=== PATIENT | male | born 1955 | race Caucasian/White ===

== ENCOUNTER 2021-03-24 02:59 | Inpatient (IN) | payer MEDICARE ==
[~2021-03-24] VITALS: Ht 177.8 cm; Wt 65.2 kg
[2021-03-24 03:39] LABS: Hematocrit 34.9 % (37.0-53.0); Hemoglobin 11.3 g/dL (13.5-17.5); Mean Corpuscular HGB 32.4 pg (26.0-34.0); Mean Corpuscular HGB Conc 32.4 g/dL (31.5-36.5); Mean Corpuscular Volume 100 fL (80-100); Mean Platelet Volume 9.4 fL (9.1-12.4); Platelet Count 300 K/mm3 (150-400); RDW Coefficient Variation 13.3 % (11.7-14.2); Red Blood Cell Count 3.49 M/mm3 (4.30-5.90); White Blood Cell Count 17.89 K/mm3 (4.00-11.30)
[2021-03-24 04:01] LABS: Alanine Aminotransfer (ALT/SGP 31 U/L (12-78); Albumin, Blood 3.1 g/dL (3.4-5.0); Albumin/Globulin Ratio 0.9 (0.8-1.8); Alk Phos 109 U/L (50-136); Anion Gap 4 mmol/L (6-16); Aspartate Aminotrans (AST/SGOT 29 U/L (12-37); Bilirubin, Total 0.4 mg/dL (0.1-1.0); Blood Urea Nitrogen 14 mg/dL (8-24); CO2, Blood 25 mmol/L (21-32); Calcium, Blood 8.4 mg/dL (8.5-10.1); Chloride, Blood 108 mmol/L (98-108); Creatinine, Blood 1.17 mg/dL (0.60-1.20); Globulin, Blood 3.6 g/dL (2.2-4.0); Glomerular Filtration Rate >60 (60-); Glucose, Blood 103 mg/dL (70-99); Potassium, Blood 4.1 mmol/L (3.5-5.5); Sodium, Blood 137 mmol/L (136-145); Total Protein, Blood 6.7 g/dL (6.4-8.2)
[2021-03-24 04:04] LABS: Influenza A, PCR NEGATIVE (NEGATIVE); Influenza B, PCR NEGATIVE (NEGATIVE); Resp Syncytial Virus, PCR NEGATIVE (NEGATIVE)
[2021-03-24 04:21] LABS: SARS-Cov-2 (COVID-19) PCR, MMC POSITIVE (NEGATIVE)
[2021-03-24 04:35] LABS: Source, Urine Clean Catch
[2021-03-24 04:40] LABS: Bilirubin, Urine Neg (Neg); Blood, Urine 4+ (Neg); Glucose Qualitative, Urine Neg (Neg); Ketones, Urine Neg (Neg); Leukocyte Esterase, Urine Neg (Neg); Nitrite, Urine Neg (Neg); Protein, Urine 2+ (Neg); Urobilinogen, Urine NORM (Normal)
[2021-03-24 04:48] LABS: BAND PERCENT MAN 23 % (0-8); BASOPHILS PERCENT MAN 0 % (0-2); EOSINOPHILS ABSOLUTE MAN 0.17 K/mm3 (0.00-0.68); EOSINOPHILS PERCENT MAN 1 % (0-6); LYMPHOCYTES ABSOLUTE MAN 0.35 K/mm3 (0.84-5.20); LYMPHOCYTES PERCENT MAN 2 % (21-46); MONOCYTES ABSOLUTE MAN 0.71 K/mm3 (0.16-1.47); MONOCYTES PERCENT MAN 4 % (4-13); NEUTROPHILS ABSOLUTE MAN 16.63 K/mm3 (1.96-9.15); SEG NEUTROPHILS PERCENT MAN 70 % (41-73); TOTAL CELLS COUNTED 100
[2021-03-24 04:51] LABS: Appearance, Urine Clear (Clear); Color, Urine Yellow (P-Yellow)
[2021-03-24 05:22] LABS: Amorphous Light (0-Heavy); Bacteria Not Seen /hpf; Mucus Light (0-Heavy); Squamous Epithelial Cells Rare /hpf (Few); White Blood Cells, Urine Not Seen /hpf (0-5)
--- NOTE | 2021-03-24 05:52 | NUR ---
REPORT RECEIVED FROM ANGELLA VASQUEZ FROM ER PRIOR TO TRANSPORT. AWAITING PATIENT ARRIVAL NOW.
--- NOTE | 2021-03-24 08:46 | NUR ---
TELEMETRY APPLIED. VERIFIED NSR 92 WITH HONEY GRADER AND BLENDER.
--- NOTE | 2021-03-24 10:15 | NUR ---
@ 0854, PORT A CATH INTACT WITH IVF INFUSING TO R CHEST.
--- NOTE | 2021-03-24 13:02 | NUR ---
WITH PATIENT'S PERMISSION, UPDATED HIS SISTER, FEROZ COHEN [phone] ON HIS STATUS VIA PHONE.
--- NOTE | 2021-03-24 14:20 | NUR ---
PATIENT INCONTINENT OF STOOL ON THE WAY TO THE BATHROOM. GOWN CHANGED. ATTENDS APPLIED. HOUSEKEEPING CALLED TO MOP THE FLOOR ALTHOUGH PATIENT CLEANED UP THE IMMEDIATE STOOL ON THE FLOOR HIMSELF. PATIENT POSITIONED SELF TO PRONE. EXPLAINED RATIONALE FOR IT. PO FLUIDS PROVIDED. WILL MONITOR.
--- NOTE | 2021-03-24 17:25 | NUR ---
@ 1545, PATIENT TOLERATING PRONING FOR ALMOST 1.5 HOURS. PO FLUIDS PROVIDED. RESPIRATIONS EVEN AND UNLABORED. PATIENT SMILING AND MORE PLEASANT THIS AFTERNOON COMPARED TO EARLIER THIS MORNING. WILL MONITOR.
--- NOTE | 2021-03-24 18:29 | NUR ---
@ 1730, PATIENT IS SLEEPING WHEN ROUNDING TO GET HIM TO PRONE AGAIN. WILL MONITOR.
--- NOTE | 2021-03-24 18:31 | NUR ---
TOLERATED ONE SESSION PRONING. NO O2 IN USE. RESPIRATIONS EVEN AND UNLABORED. TELE INTACT SR EXCEPT FOR A LESS THAN 15 SECOND RUN OF SVT PER MANUAL TRAINING TEACHER. APPETITE GOOD. TOLERATED PO FLUIDS. ATTENDS IN USE DUE TO ONE INCONTINENT EPISODE ON ROUTE TO THE BATHROOM. AMBULATES WITHOUT DIFFICULTY. PORT A CATH SALINE LOCKED AFTER FINISHING A LITER OF LR. VOIDS PER URINAL. WATCHED TV INTERMITTENTLY THROUGHOUT THE DAY. WILL MONITOR.
[2021-03-24] MEDS ORDERED: GABA300 PO (21:32)
--- NOTE | 2021-03-24 22:21 | NUR ---
Lab called at 2144 to inform that patients blood cultures have grown out Gram Positive Diplo Cocci. Evening hospitalist (Dr. Pérez) was informed. New order to [facility]
[2021-03-25 04:29] LABS: Hematocrit 33.9 % (37.0-53.0); Hemoglobin 10.9 g/dL (13.5-17.5); Mean Corpuscular HGB 31.7 pg (26.0-34.0); Mean Corpuscular HGB Conc 32.2 g/dL (31.5-36.5); Mean Corpuscular Volume 99 fL (80-100); Mean Platelet Volume 9.9 fL (9.1-12.4); Platelet Count 291 K/mm3 (150-400); RDW Coefficient Variation 13.5 % (11.7-14.2); Red Blood Cell Count 3.44 M/mm3 (4.30-5.90); White Blood Cell Count 28.08 K/mm3 (4.00-11.30)
[2021-03-25 05:24] LABS: Albumin, Blood 2.4 g/dL (3.4-5.0); Anion Gap 4 mmol/L (6-16); Blood Urea Nitrogen 19 mg/dL (8-24); Bun/Creatinine Ratio 19.2 (12.0-20.0); CO2, Blood 26 mmol/L (21-32); Calcium, Blood 8.2 mg/dL (8.5-10.1); Chloride, Blood 104 mmol/L (98-108); Creatinine, Blood 0.99 mg/dL (0.60-1.20); Glomerular Filtration Rate >60 (60-); Glucose, Blood 168 mg/dL (70-99); Phosphorus, Blood 2.3 mg/dL (2.5-4.9); Potassium, Blood 4.3 mmol/L (3.5-5.5); Sodium, Blood 134 mmol/L (136-145)
[2021-03-25 06:06] LABS: BAND PERCENT MAN 9 % (0-8); BASOPHILS PERCENT MAN 0 % (0-2); EOSINOPHILS PERCENT MAN 0 % (0-6); LYMPHOCYTES ABSOLUTE MAN 0.56 K/mm3 (0.84-5.20); LYMPHOCYTES PERCENT MAN 2 % (21-46); MONOCYTES ABSOLUTE MAN 0.84 K/mm3 (0.16-1.47); MONOCYTES PERCENT MAN 3 % (4-13); NEUTROPHILS ABSOLUTE MAN 26.67 K/mm3 (1.96-9.15); SEG NEUTROPHILS PERCENT MAN 86 % (41-73); TOTAL CELLS COUNTED 100
--- NOTE | 2021-03-25 09:58 | NUR ---
MD AWARE OF WBC INCREASE TO 28 ON ROUNDS.
--- NOTE | 2021-03-25 10:10 | NUR ---
@ 0820, RIGHT CHEST PORT A CATH INTACT. DENIES PAIN. TELEMETRY IN PROGRESS.
--- NOTE | 2021-03-25 12:16 | NUR ---
WENT TO PATIENT'S ROOM TO GET HIM TO PRONE, HE IS ASLEEP.
--- NOTE | 2021-03-25 12:47 | NUR ---
SPUTUM COLLECTION CUP PROVIDED. PATIENT IS EATING LUNCH. DISCUSSED NEEDING TO PRONE Q 2 HOURS AND THAT ABOUT AN HOUR AFTER HE FINISHES LUNCH HE NEEDS TO DO IT. INSTRUCTED TO CALL WHEN SPUTUM SAMPLE IS OBTAINED. HAS HAD A COUPLE OF SPUTUMS COUGHED UP INTO EMESIS BASIN. SAYS HE'S FREQUENTLY COUGHING UP SPUTUM. WILL MONITOR.
--- NOTE | 2021-03-25 14:01 | NUR ---
RECEIVED CALL FROM PATIENT'S SISTER TO CHECK ON STATUS. UPDATE GIVEN. PATIENT GAVE PERMISSION YESTERDAY TO UPDATE HIS SISTER ANYTIME SHE CALLS.
--- NOTE | 2021-03-25 15:06 | NUR ---
ATTEMPTED TO GET PATIENT TO PRONE BUT HE IS SLEEPING.
--- NOTE | 2021-03-25 16:04 | NUR ---
PATIENT STATES HE DID SLEEP IN A PRONE POSITION AFTER LUNCH FOR AWHILE BUT WOKE UP LAYING ON HIS BACK. INSTRUCTED HIM OF THE NEED TO PRONE AGAIN RIGHT AFTER VS ARE FINISHED THAT ARE IN PROGRESS. VERBALIZED UNDERSTANDING.
--- NOTE | 2021-03-25 17:32 | NUR ---
RESPIRATION EVEN AND UNLABORED THROUGHOUT THE SHIFT. 2D ECHO COMPLETED TODAY. IV ABX INFUSED PER -APR. NO C/O PAIN VOICED. PRONED A COUPLE OF TIMES. SLEPT A LARGE PART OF THE DAY. APPETITE WAS GOOD. STATED NEEDING SNACKS TO HELP WITH THE CRAVING TO SMOKE. PORT A CATH SALINE LOCKED. VS STABLE. AAO X 4. NO COMPLAINTS VOICED AT PRESENT. WILL MONITOR.
--- NOTE | 2021-03-25 18:37 | NUR ---
PATIENT ABLE TO SUPPLY SPUTUM FOR SPUTUM CULTURE. TELE ELECTRODES AND BATTERIES CHANGED. NSR NOTED PER CUSTOMER ENGINEER PATIENT HAD A FEW SECOND RUN OF SVT THIS AFTERNOON.
--- NOTE | 2021-03-26 05:09 | NUR ---
CONVEYOR LINE BAKERY WORKER SUMMARY PATIENT HAD A VERY GOOD NIGHT REST. PRONED FOR THE MOST PART. STATED HE FELT LESS DIZZY AND HIS V/S WERE STABLE. HE LODGED NO COMPLAINTS. WILL CONTINUE TO MONITOR HIM.
[2021-03-26 05:20] LABS: BASOPHILS ABSOLUTE AUTO 0.05 K/mm3 (0.00-0.23); BASOPHILS PERCENT AUTO 0 % (0-2); EOSINOPHILS ABSOLUTE AUTO 0.07 K/mm3 (0.00-0.68); EOSINOPHILS PERCENT AUTO 0 % (0-6); Hematocrit 31.7 % (37.0-53.0); Hemoglobin 10.5 g/dL (13.5-17.5); IMMATURE GRAN ABSOLUTE AUTO 0.23 K/mm3 (0.00-0.10); IMMATURE GRAN PERCENT AUTO 1 % (0-1); LYMPHOCYTES ABSOLUTE AUTO 1.13 K/mm3 (0.84-5.20); LYMPHOCYTES PERCENT AUTO 4 % (21-46); MONOCYTES PERCENT AUTO 6 % (4-13); Mean Corpuscular HGB 32.8 pg (26.0-34.0); Mean Corpuscular HGB Conc 33.1 g/dL (31.5-36.5); Mean Corpuscular Volume 99 fL (80-100); Mean Platelet Volume 10.3 fL (9.1-12.4); NEUTROPHILS ABSOLUTE AUTO 23.63 K/mm3 (1.96-9.15); NEUTROPHILS PERCENT AUTO 88 % (41-73); Platelet Count 258 K/mm3 (150-400); RDW Coefficient Variation 13.3 % (11.7-14.2); RDW Standard Deviation 48.4 fL (35.1-46.3); White Blood Cell Count 26.71 K/mm3 (4.00-11.30)
[2021-03-26 06:15] LABS: Albumin, Blood 2.3 g/dL (3.4-5.0); Anion Gap 4 mmol/L (6-16); Blood Urea Nitrogen 19 mg/dL (8-24); Bun/Creatinine Ratio 21.1 (12.0-20.0); CO2, Blood 26 mmol/L (21-32); Calcium, Blood 8.4 mg/dL (8.5-10.1); Chloride, Blood 105 mmol/L (98-108); Glomerular Filtration Rate >60 (60-); Glucose, Blood 74 mg/dL (70-99); Phosphorus, Blood 2.6 mg/dL (2.5-4.9); Potassium, Blood 3.6 mmol/L (3.5-5.5); Sodium, Blood 135 mmol/L (136-145)
--- NOTE | 2021-03-26 10:31 | NUR ---
@ 9845, NEW SPUTUM SAMPLE OBTAINED AND SENT TO LAB.
--- NOTE | 2021-03-26 14:36 | NUR ---
SPOKE WITH DR. BUTTS CONCERNING ROBERT ORDER AND WHICH WASTE WATER WORKER SHE MAY HAVE CONSULTED WITH FOR THE ROBERT. WAS INFORMED BY THE [facility] TECH THAT DR. GARRIDO WOULD BE THE WASTE WATER WORKER FOR TOMORROW. RECEIVED A CALL BACK FROM DR. BUTTS SAYING SHE COMMUNICATED WITH DR. GARRIDO AND THE ROBERT WILL BE TOMORROW. ATTEMPTED TO LOCATE NICHOLAS WITH THE [facility] TO UPDATE HIM. MESSAGE LEFT FOR NICHOLAS WITH LADONNA AT THE [facility] AT EXT [phone]. PATIENT WILL BE NPO AFTER MN. PAGAN, CHARGE NURSE INFORMED.
--- NOTE | 2021-03-26 15:29 | NUR ---
ASPHALT BLENDER ADJUSTED. NSR NOTED. INFORMED PATIENT ABOUT ROBERT TOMORROW AND OF THE NEED TO BE NPO AFTER MIDNIGHT TONIGHT. PATIENT STATES HAVING PRONED TWICE TODAY ABOUT ONE HOUR EACH TIME LAST ENDING AROUND 3 PM. WATCHING TV, EATING SNACKS. WILL MONITOR.
--- NOTE | 2021-03-26 16:28 | NUR ---
[facility] TO LET HIM KNOW PER MD COMMUNICATION THAT THE ROBERT WILL BE AT 10 AM TOMORROW. VERBALIZED UNDERSTANDING.
--- NOTE | 2021-03-26 16:42 | NUR ---
RESPIRATIONS EVEN AND UNLABORED. PATIENT PRONED A FEW TIMES THROUGHOUT THE DAY. TELEMETRY IN PROGRESS WITH NSR NOTED THROUGHOUT SHIFT. IV STEROIDS AND ABX PER E-MAR. PATIENT IS AWARE HE IS TO BE NPO AFTER MIDNIGHT FOR A 10 AM ROBERT TOMORROW. NO C/O PAIN VOICED THIS SHIFT. WILL MONITOR.
--- NOTE | 2021-03-26 16:48 | NUR ---
RESPIRATIONS EVEN AND UNLABORED. PORT A CATH ACCESSED AND SALINE LOCKED. RECEIVED IV ABX AND STEROIDS PER E-MAR. PATIENT IS AWARE TO BE NPO AFTER MN FOR A 10 AM ROBERT TOMORROW. NO C/O PAIN OR DISTRESS VOICED THIS SHIFT. PATIENT PRONED HIMSELF A FEW TIMES THROUGHOUT THE DAY. HYDRODYNAMICS TEACHER CONSULT PLACED AND PENDING. PO FOOD AND FLUID INTAKE GOOD. VOIDS PER URINAL AND AMBULATES WITHOUT DIFFICULTY. WILL MONITOR.
[2021-03-27 04:51] LABS: BASOPHILS ABSOLUTE AUTO 0.04 K/mm3 (0.00-0.23); BASOPHILS PERCENT AUTO 0 % (0-2); EOSINOPHILS ABSOLUTE AUTO 0.01 K/mm3 (0.00-0.68); EOSINOPHILS PERCENT AUTO 0 % (0-6); Hematocrit 31.6 % (37.0-53.0); Hemoglobin 10.3 g/dL (13.5-17.5); IMMATURE GRAN PERCENT AUTO 1 % (0-1); LYMPHOCYTES ABSOLUTE AUTO 1.03 K/mm3 (0.84-5.20); LYMPHOCYTES PERCENT AUTO 4 % (21-46); MONOCYTES ABSOLUTE AUTO 1.38 K/mm3 (0.16-1.47); MONOCYTES PERCENT AUTO 5 % (4-13); Mean Corpuscular HGB 32.3 pg (26.0-34.0); Mean Corpuscular HGB Conc 32.6 g/dL (31.5-36.5); Mean Corpuscular Volume 99 fL (80-100); Mean Platelet Volume 10.2 fL (9.1-12.4); NEUTROPHILS ABSOLUTE AUTO 23.37 K/mm3 (1.96-9.15); NEUTROPHILS PERCENT AUTO 90 % (41-73); Platelet Count 296 K/mm3 (150-400); RDW Coefficient Variation 13.2 % (11.7-14.2); RDW Standard Deviation 47.8 fL (35.1-46.3); Red Blood Cell Count 3.19 M/mm3 (4.30-5.90); White Blood Cell Count 26.13 K/mm3 (4.00-11.30)
[2021-03-27 05:11] LABS: Albumin, Blood 2.2 g/dL (3.4-5.0); Anion Gap 6 mmol/L (6-16); Blood Urea Nitrogen 23 mg/dL (8-24); Bun/Creatinine Ratio 26.4 (12.0-20.0); CO2, Blood 26 mmol/L (21-32); Calcium, Blood 8.6 mg/dL (8.5-10.1); Chloride, Blood 103 mmol/L (98-108); Creatinine, Blood 0.87 mg/dL (0.60-1.20); Glomerular Filtration Rate >60 (60-); Glucose, Blood 100 mg/dL (70-99); Phosphorus, Blood 3.4 mg/dL (2.5-4.9); Potassium, Blood 4.3 mmol/L (3.5-5.5); Sodium, Blood 135 mmol/L (136-145)
--- NOTE | 2021-03-27 05:58 | NUR ---
SAP PORTAL CONSULTANT SUMMARY PATIENT HAD A FAIR SHIFT. WITH STABLE V/S. HE DID NOT LODGE ANY NEW COMPLAINT. HE HAS BEEN NPO FROM ID. WILL CONTINUE TO MONITOR HIM.
--- NOTE | 2021-03-27 18:51 | NUR ---
SHIFT SUMMARY: SCHEDULED ROBERT DID NOT TAKE PLACE D/T PATIENT HX OF ESOPHAGEAL CA AND PRESENCE OF SCAR TISSUE. DR. ELLINGTON WANTS GI TO SEE PATIENT TO MAKE SURE IT'S SAFE TO PASS SCOPE BEFORE PROCEEDING. PATIENT EASILY IRRITABLE MAT IN REGARDS TO FOOD. NO EVENTS ON TELEMETTY. R CHEST MEDIPORT HEPARIN LOCKED, GOOD BLOOD RETURN. USING URINAL INDEPENDENTLY. GAVE TELEPHONE UPDATE TO PT'S SISTER FEROZ, WHO WOULD LIKE HOSPITALIST TO TOUCH BASE WITH PT'S ONCOLOGIST IN [place] (BUT NEITHER PT OR SISTER CAN REMEMBER ONCOLOGIST'S NAME).
--- NOTE | 2021-03-28 04:34 | NUR ---
STEPDOWN NURSE SUMMARY PATIENT HAD A FAIR SHIFT. WITH STABLE VITALS. STATED HE HAD EXPLOSIVE DIARRHEA X2. WAS GIVEN SOOME SNACKS AND FLUIDS. I WILL MONITOR FOR NOW. NO OTHER COMPLAINTS LODGED.
--- NOTE | 2021-03-28 16:59 | NUR ---
SHIFT SUMMARY PATIENT IS ALERT AND ORIENTED, PLEASANT AND COOPERATIVE WITH CARE. THE PATIENT HAS BEEN EXPRESSING FRUSTRATION ABOUT MEALS THIS SHIFT. THIS NURSE SPOKE WITH DIRECTOR INDUSTRIAL NURSING ABOUT SPEAKING TO THE PATIENT. PATIENT'S MEDIPORT IS HEPARIN LOCKED. NO ACUTE CHANGES THIS SHIFT. VSS. CALL LIGHT WITHIN REACH.
--- NOTE | 2021-03-29 03:41 | NUR ---
Shift Summary Patient vital stable, He is AAOX4, no complaint of pain or disconfort voices. He is pleasant and cooperative with care. No acute events this shift. We will continue with monitoring patient.
[2021-03-29 04:31] LABS: Hematocrit 34.1 % (37.0-53.0); Hemoglobin 10.8 g/dL (13.5-17.5); Mean Corpuscular HGB 31.7 pg (26.0-34.0); Mean Corpuscular HGB Conc 31.7 g/dL (31.5-36.5); Mean Corpuscular Volume 100 fL (80-100); Mean Platelet Volume 9.5 fL (9.1-12.4); Platelet Count 386 K/mm3 (150-400); RDW Coefficient Variation 13.1 % (11.7-14.2); RDW Standard Deviation 48.9 fL (35.1-46.3); Red Blood Cell Count 3.41 M/mm3 (4.30-5.90); White Blood Cell Count 14.06 K/mm3 (4.00-11.30)
[2021-03-29 04:58] LABS: Anion Gap 5 mmol/L (6-16); Blood Urea Nitrogen 27 mg/dL (8-24); Bun/Creatinine Ratio 30.3 (12.0-20.0); CO2, Blood 23 mmol/L (21-32); Calcium, Blood 8.4 mg/dL (8.5-10.1); Chloride, Blood 108 mmol/L (98-108); Creatinine, Blood 0.89 mg/dL (0.60-1.20); Glomerular Filtration Rate >60 (60-); Glucose, Blood 90 mg/dL (70-99); Potassium, Blood 4.6 mmol/L (3.5-5.5); Sodium, Blood 136 mmol/L (136-145)
[2021-03-29 13:05] LABS: Adenovirus F 40/41 Not Detected (NOT DETECT); Astrovirus Not Detected (NOT DETECT); Campylobacter Sp Not Detected (NOT DETECT); Cryptosporidium Not Detected (NOT DETECT); Cyclospora Cayetanensis Not Detected (NOT DETECT); E. Coli O157 Not Detected (NOT DETECT); Entamoeba Histolytica Not Detected (NOT DETECT); Enteroaggregative E. coli-EAEC Not Detected (NOT DETECT); Enteropathogenic E. coli-EPEC Not Detected (NOT DETECT); Enterotoxigenic E. coli-ETEC Not Detected (NOT DETECT); Giardia Lamblia Not Detected (NOT DETECT); Norovirus GI/GII Not Detected (NOT DETECT); Plesiomonas Shigelloides Not Detected (NOT DETECT); Rotavirus A Not Detected (NOT DETECT); Salmonella Sp Not Detected (NOT DETECT); Sapovirus Not Detected (NOT DETECT); Shiga Toxin-prod E. coli-STEC Not Detected (NOT DETECT); Shigella/Enteroin E. coli-EIEC Not Detected (NOT DETECT); Vibrio Cholerae Not Detected (NOT DETECT); Vibrio Sp Not Detected (NOT DETECT); Yersinia Enterocolitica Not Detected (NOT DETECT)
--- NOTE | 2021-03-29 17:46 | NUR ---
SHIFT SUMMARY PATIENT IS ALERT AND ORIENTED X4, PLEASANT AND COOPERATIVE WITH CARE. DR. HOUSTON CONSULTED PATIENT THIS AFTERNOON. PATIENT WILL HAVE SCOPE PROCEDURE TOMORROW 03/30/21. STOOL SAMPLE SENT OFF TODAY. PATIENT IS TO HAVE ONLY WATER AFTER DINNER AND NPO AT 0600 UNTIL AFTER PROCEDURE. PATIENT SEEMS TO BE HAPPY WITH THEIR FOOD CHOICES TODAY. ON RA. MEDIPORT HEPARIN LOCKED. SR ON TELE. NO ACUTE CHANGES. CALL LIGHT WITHIN REACH.
--- NOTE | 2021-03-30 04:28 | NUR ---
SHIFT SUMMARY No acute distress or disconfort noted. Patient stable, NPO At 6AM today for a possible ROBERT later during the day. No changes in patient status at this time. We will continue to monitor.
--- NOTE | 2021-03-30 09:15 | NUR ---
INTO [facility]IA [facility] FROM [email or web address]. History, Chart, Medications and Allergies reviewed before start of procedure.Patient confirms NPO status and agrees with scheduled sURGERY
--- NOTE | 2021-03-30 09:21 | NUR ---
03/30/21 0921 Amparo Torres History, Chart, Medications and Allergies reviewed before start of procedure.MONITOR INTACT WITH CONTINUOUS PULSE OXIMETRY, 3 LEAD, AND INTERMITTENT BP.O2 VIA POM INTACT THROUGHOUT SEDATION/PROCEDURE.See Anesthesia record
--- NOTE | 2021-03-30 09:22 | NUR ---
REFUSING TELE Received report from night RN that patient has been refusing tele. This RN notified Dr. Bean. No new order. Tele has been off for several hours according to tele monitor.
--- NOTE | 2021-03-30 10:10 | NUR ---
ROBERT PROCEDURE Called both Dr. Mendoza and Dr. Denis RE when planned ROBERT procedure will happen. Was redirected to contact Dr. Denis regarding further instructions. Per Dr. Denis, he will be in to see patient in approx. 30 minutes. Explained to patient the current situation and reason why meal remains held. Patient is irritable and agitated because "I have been fasting for 15 hours!". Dr. Denis is aware of patient's impatience.
--- NOTE | 2021-03-30 18:52 | NUR ---
Shift Summary A/Ox4, pleasant this shift. Can be a little irritable at times with discussions surrounding food. Dietitian consult ordered per V.O. from Dr. Bean. Patient has been refusing tele, there's no order to d/c tele but Dr. Bean is aware. EGD completed today by Dr. Blevins. Independent in room. Denies pain. Still have chronic diarrhea, patient states normal from chronic alcohol abuse. Appetite is excellent. WCTM.
[2021-03-31 05:09] LABS: Hematocrit 34.8 % (37.0-53.0); Hemoglobin 10.9 g/dL (13.5-17.5); Mean Corpuscular HGB 32.2 pg (26.0-34.0); Mean Corpuscular HGB Conc 31.3 g/dL (31.5-36.5); Mean Corpuscular Volume 103 fL (80-100); Mean Platelet Volume 9.5 fL (9.1-12.4); Platelet Count 475 K/mm3 (150-400); RDW Coefficient Variation 13.3 % (11.7-14.2); RDW Standard Deviation 49.9 fL (35.1-46.3); Red Blood Cell Count 3.38 M/mm3 (4.30-5.90); White Blood Cell Count 14.65 K/mm3 (4.00-11.30)
[2021-03-31 05:30] LABS: Albumin, Blood 2.4 g/dL (3.4-5.0); Anion Gap 7 mmol/L (6-16); Blood Urea Nitrogen 31 mg/dL (8-24); Bun/Creatinine Ratio 33.5 (12.0-20.0); CO2, Blood 23 mmol/L (21-32); Calcium, Blood 8.7 mg/dL (8.5-10.1); Chloride, Blood 109 mmol/L (98-108); Creatinine, Blood 0.93 mg/dL (0.60-1.20); Glomerular Filtration Rate >60 (60-); Glucose, Blood 82 mg/dL (70-99); Phosphorus, Blood 4.2 mg/dL (2.5-4.9); Potassium, Blood 4.5 mmol/L (3.5-5.5); Sodium, Blood 139 mmol/L (136-145)
--- NOTE | 2021-03-31 06:03 | NUR ---
SHIFT SUMMARY PT IS A 62 Y/O MALE, ADMITTED FOR SEPSIS AND POSITIVE FOR COVID-19. HE IS A&O X 4, INDEPENDENT IN THE ROOM. PT HAS A HX OF ESOPHAGEAL CA, AND HAD AN EPISODE OF ASPIRATION WHILE DRINKING DURING THE NIGHT. PT WAS ASSESSED BY THIS RN AND RT AFTER THAT EPISODE OF ASPIRATION WITH NO CHANGES IN PT CONDITION NOTED. VITAL SIGNS STABLE. NO C/O ACUTE PAIN OR NAUSEA. NO ACUTE CHANGES IN PT CONDITION NOTED DURING THE NIGHT. WILL CONTINUE TO MONITOR AND TREAT PER EMAR UNTIL HAND OFF TO DAY SHIFT RN.
--- NOTE | 2021-03-31 17:35 | NUR ---
PATIENT IS AWAKE,ALERT AND ORIENTED TIMES. PATIENT IS COVID POSITIVE ON ROOM AIR WITH OXYGEN SATUARATION 100%. DENIES PAIN. PATIENT WAS ENCORAGE TO CALL FOR SYSTEM WHEN ASSISTANCE.
--- NOTE | 2021-04-01 04:48 | NUR ---
SHIFT SUMMARY Patient is in no acute distress. He is AAOX3 with no complaint of pain voices. Vital stable. Patient using urinal with good amount for this shift. We are monitoring patient progress and report as needed.
[2021-04-01 05:08] LABS: Hematocrit 34.3 % (37.0-53.0); Hemoglobin 10.6 g/dL (13.5-17.5); Mean Corpuscular HGB 31.7 pg (26.0-34.0); Mean Corpuscular HGB Conc 30.9 g/dL (31.5-36.5); Mean Corpuscular Volume 103 fL (80-100); Mean Platelet Volume 9.6 fL (9.1-12.4); Platelet Count 490 K/mm3 (150-400); RDW Coefficient Variation 13.3 % (11.7-14.2); RDW Standard Deviation 51.2 fL (35.1-46.3); Red Blood Cell Count 3.34 M/mm3 (4.30-5.90)
[2021-04-01 05:33] LABS: BAND PERCENT MAN 1 % (0-8); BASOPHILS ABSOLUTE MAN 0.19 K/mm3 (0.00-0.23); BASOPHILS PERCENT MAN 1 % (0-2); EOSINOPHILS ABSOLUTE MAN 0.98 K/mm3 (0.00-0.68); EOSINOPHILS PERCENT MAN 5 % (0-6); LYMPHOCYTES ABSOLUTE MAN 1.76 K/mm3 (0.84-5.20); LYMPHOCYTES PERCENT MAN 9 % (21-46); MONOCYTES ABSOLUTE MAN 1.37 K/mm3 (0.16-1.47); MONOCYTES PERCENT MAN 7 % (4-13); MYELOCYTE ABSOLUTE MAN 0.98 K/mm3 (0.00-0.00); MYELOCYTE PERCENT MAN 5 % (0-0); SEG NEUTROPHILS PERCENT MAN 72 % (41-73); TOTAL CELLS COUNTED 100
[2021-04-01] MEDS ORDERED: LACT PO (11:23)
[2021-04-01] MEDS ORDERED: AMOCLA875 PO (11:24)
--- NOTE | 2021-04-01 12:54 | NUR ---
patient recieved discharge instruction, patient verbalized understanding. Iv removed per protocol. patient medication was fax to [facility] per his request. patient is waiting on his sister for leaf size picker. patient was advised to follow-up with pcp.
== END 2021-04-01 14:33 | disposition home or self-care (01) | DRG 871 ==
LOC: ER 02:59 → MEDS 04:53 → ENPENDDIS 04-01 10:46 → MEDS 04-01 14:33
PROVIDERS: Family Medicine; Internal Medicine; Student in an Organized Health Care Education/Training Program; ADMIT Internal Medicine
PROC: 8E0ZXY6 Isolation (ICD-10-PCS; principal; 2021-03-24)
PROC: 3E0333Z Introduction of Anti-inflammatory into Peripheral Vein, Percutaneous Approach (ICD-10-PCS; 2021-03-24)
PROC: 0DJ08ZZ Inspection of Upper Intestinal Tract, Via Natural or Artificial Opening Endoscopic (ICD-10-PCS; 2021-03-24)
DX: A40.3 Sepsis due to Streptococcus pneumoniae (principal); U07.1 COVID-19; J12.82 Pneumonia due to coronavirus disease 2019; A41.89 Other specified sepsis; J96.01 Acute respiratory failure with hypoxia; C15.9 Malignant neoplasm of esophagus, unspecified; E87.1 Hypo-osmolality and hyponatremia; R19.7 Diarrhea, unspecified; F17.210 Nicotine dependence, cigarettes, uncomplicated; D64.9 Anemia, unspecified; E83.39 Other disorders of phosphorus metabolism; I10 Essential (primary) hypertension; G62.9 Polyneuropathy, unspecified; Z88.6 Allergy status to analgesic agent; Z79.899 Other long term (current) drug therapy
CPT/HCPCS: 0097U; 0241U; 36415; 71045; 80048; 80053; 80069; 81001; 83605; 85025; 85027; 87040; 87186; 93005; 93010; 93306; 96374; 96375; 99285-25; A9270; J0456; J0461; J0692; J0696; J1100; J1642; J1650; J2250; J2310; J2704; J3010; J3370; J7030; J7040; J7050; J7120

== ENCOUNTER 2021-04-28 02:00 | Emergency (ER) | payer MEDICARE ==
[~2021-04-28] VITALS: Ht 177.8 cm; Wt 72.6 kg
[~2021-04-28 02:00] MED LIST: AMOCLA875 PO; GABA300 PO; LACT PO
[2021-04-28 02:33] LABS: BASOPHILS ABSOLUTE AUTO 0.11 K/mm3 (0.00-0.23); BASOPHILS PERCENT AUTO 1 % (0-2); EOSINOPHILS PERCENT AUTO 20 % (0-6); Hemoglobin 10.5 g/dL (13.5-17.5); IMMATURE GRAN ABSOLUTE AUTO 0.03 K/mm3 (0.00-0.10); IMMATURE GRAN PERCENT AUTO 0 % (0-1); LYMPHOCYTES ABSOLUTE AUTO 1.47 K/mm3 (0.84-5.20); LYMPHOCYTES PERCENT AUTO 15 % (21-46); MONOCYTES ABSOLUTE AUTO 0.95 K/mm3 (0.16-1.47); MONOCYTES PERCENT AUTO 9 % (4-13); Mean Corpuscular HGB 31.8 pg (26.0-34.0); Mean Corpuscular HGB Conc 31.8 g/dL (31.5-36.5); Mean Corpuscular Volume 100 fL (80-100); Mean Platelet Volume 9.3 fL (9.1-12.4); NEUTROPHILS ABSOLUTE AUTO 5.61 K/mm3 (1.96-9.15); NEUTROPHILS PERCENT AUTO 55 % (41-73); Platelet Count 345 K/mm3 (150-400); RDW Coefficient Variation 13.7 % (11.7-14.2); RDW Standard Deviation 49.7 fL (35.1-46.3); White Blood Cell Count 10.17 K/mm3 (4.00-11.30)
[2021-04-28 02:51] LABS: Albumin, Blood 3.4 g/dL (3.4-5.0); Albumin/Globulin Ratio 0.8 (0.8-1.8); Bilirubin, Total 0.2 mg/dL (0.1-1.0); Bun/Creatinine Ratio 16.4 (12.0-20.0); Calcium, Blood 8.8 mg/dL (8.5-10.1); Creatinine, Blood 1.34 mg/dL (0.60-1.20); Globulin, Blood 4.1 g/dL (2.2-4.0); Potassium, Blood 3.7 mmol/L (3.5-5.5); Total Protein, Blood 7.5 g/dL (6.4-8.2)
[2021-04-28] MEDS ORDERED: PRED20 PO (04:45)
[2021-04-28] MEDS ORDERED: LEVO750 PO (04:46)
== END 2021-04-28 05:40 | disposition home or self-care (01) ==
LOC: ER 02:00
PROVIDERS: Student in an Organized Health Care Education/Training Program
DX: J44.1 Chronic obstructive pulmonary disease with (acute) exacerbation (principal); F17.210 Nicotine dependence, cigarettes, uncomplicated; Z88.5 Allergy status to narcotic agent
CPT/HCPCS: 36415; 71045; 80053; 83880; 84484; 85025; 93005; 93010; 94644; 94645; 96374; 99285-25; A9270; J2930